=== PATIENT | male | born 1995 | race Two or more races ===

== ENCOUNTER 2017-01-14 16:22 | Emergency (ER) | payer BC ==
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
== END 2017-01-14 18:20 | disposition home or self-care (01) ==
LOC: ER 16:22
DX: S02.69XA Fracture of mandible of other specified site, initial encounter for closed fracture (principal); F17.210 Nicotine dependence, cigarettes, uncomplicated; Z88.8 Allergy status to other drugs, medicaments and biological substances; Y04.0XXA Assault by unarmed brawl or fight, initial encounter; Y92.89 Other specified places as the place of occurrence of the external cause